=== PATIENT | male | born 1965 | race Caucasian/White ===

== ENCOUNTER 2018-06-18 09:18 | Day surgery (SDC) | payer MEDICARE ==
[2018-06-18] MEDS ORDERED: Fentanyl 100 MCG/2 ML VIAL ONE ×2 (09:57→10:27)
[2018-06-18] MEDS ORDERED: Midazolam HCl 2 mg/2 ml Vial ONE (10:27)
[2018-06-18] MEDS ORDERED: Iopamidol-M 300 61% 15 ML VIAL ONE (11:50)
--- NOTE | 2018-06-18 13:38 | RAD ---
CERVICAL AND THORACIC AND LUMBAR SPINE MYELOGRAM: HISTORY: Radiculopathy. COMPARISON: None. EXOPSURE: 1.4 minutes. 1685.0 mGy*^m2. FINDINGS: Initial loan specialist lumbar spine radiograph demonstrates 5 lumbar-type vertebral bodies. Vertebral body he ight is maintained. No malalignment. No spondylolisthesis. Initial 2 views of thoracic spine demon strate preservation of disk space height. No fracture or malalignment. Initial 2 views of the cervical spine demonstrate an anterior fusion plate with transvertebral body s crew at C3 and C4, as well as C5 and C6. No perihardware lucency. There is associated disk prosthes is. Moderate degenerative disk disease at C4-C5. Successful lumbar puncture for intrathecal contrast administration. A total of 9 cc of Isovue-M 300 contrast was administered intrathecally. The patient tolerated the procedure well. No immediate or postprocedure complications. TECHNIQUE: Consent was obtained to perform a lumbar puncture for cervical, thoracic, and lumbar myelogram. The patient's back was evaluated. The L2-L3 level was deemed appropriately. The skin was prepped and dr aped in sterile fashion. 1% Lidocaine, buffered with sodium bicarbonate, was used for local anesthes ia. Under fluoroscopic guidance, a 22-gauge spinal needle was advanced into the CSF space. The inne r stylette was removed. Via a short tubing catheter, a total of 9 cc of Isovue-M 300 contrast was ad ministered intrathecally. The patient tolerated the procedure well. No immediate or postprocedure c omplications. IMPRESSION: Successful cervical, thoracic, and lumbar spine myelogram. POS: [facility]
--- NOTE | 2018-06-18 13:45 | CT ---
CT THORACIC SPINE WITH CONTRAST: CT THORACIC SPINE MYELOGRAM: INDICATIONS: Back pain. FINDINGS: The thoracic spine vertebral body heights are maintained. There is no acute malalignment. Multileve l mild endplate degenerative change with marginal osteophyte formation is present. There is no high grade central canal stenosis or cord compromise throughout the thoracic spine. No high grade osseous compromise of the neural foramina. There is incompletely evaluated pleural-based and parenchymal density of the bilateral hemithoraces. Incidental note of punctate right nephrolithiasis. There is vascular calcification. IMPRESSION: Mild multilevel endplate degenerative change throughout the thoracic spine without evidence of high g rade central canal or neural foraminal stenosis. POS: [facility]
--- NOTE | 2018-06-18 13:53 | CT ---
POSTMYELOGRAM CERVICAL SPINE CT: COMPARISON: 07/05/2015. HISTORY: Radiculopathy. Status post cervical fusion. TECHNIQUE: Post-myelogram cervical spine CT is performed in the axial plane. Reformatted images are submitted f or interpretation. FINDINGS: The lateral masses of C1 and C2 as well as the facets have appropriate articulation. Cervical spine vertebral body height is maintained. No fracture. Stable fusion change at C3, C4, C5, an dC6. Mode rate degenerative disk disease at C4-C5 unchanged. Visualized soft tissue neck structures, upper mediastinum, and lung apices are unremarkable. The onl y exception is that there appears to be a focal area of atelectasis or scarring in the medial right l patel apex. Evaluation is limited on this examination. C2-C3: No disk-osteophyte complex. No significant central canal stenosis. Foramen are patent. C3-C4: There is a broad-based osteophyte ridge with a central component that abuts the thecal sac. Ventral subarachnoid space is still maintained. Mild central canal stenosis. Neural foramina are pa tent bilaterally. C4-C5: There is a broad-based disk-osteophyte complex which deforms the thecal sac. Ventral subarac hnoid space is effaced. There is moderate to severe central canal stenosis. The degree of central c anal stenosis has progressed since the previous examination. Degenerative changes in bilateral uncov ertebral joints results in mild bilateral foraminal narrowing. C5-C6: There is a central osteophyte ridge that buts the thecal sac. Mild central canal stenosis. Neural foramen are patent. C6-7: There is a broad-based disk-osteophyte complex that abuts the thecal sac. There appears to be mild to moderate central canal stenosis. Mild bilateral foraminal narrowing. C7-T1: No significant central canal stenosis or foraminal narrowing. IMPRESSION: 1. Worsening degenerative disk disease at C4-C5. There is moderate to severe central canal stenosis .. 2. Stable central canal stenosis at C6-C7. POS: [facility]
--- NOTE | 2018-06-18 14:03 | CT ---
POST MYELOGRAM LUMBAR SPINE CT: HISTORY: Lumbar radiculopathy. Pain. COMPARISON: None. TECHNIQUE: Post myelogram lumbar spine CT is performed in the axial plane. Reformatted images are submitted for interpretation. FINDINGS: Five lumbar-type vertebral bodies. Lumbar spine vertebral body height is maintained. There is no fr acture. No spondylolisthesis or spondolysis. The visualized retroperitoneal structures are unremarkable. Symmetric attenuation of the psoas muscl es. Alimentary canal is unremarkable. Conus medullaris terminates at the inferior aspect of L1. T12-L1: Disk space height is preserved. No significant central canal stenosis. Foramen are patent. L1-L2: Disk space height is preserved. No significant central canal stenosis or neural foraminal na rrowing. L2-L3: Disk space height is preserved. No significant central canal stenosis or neural foraminal na rrowing. L3-L4: Disk space height is preserved. No significant central canal stenosis. The right neural for amen is patent. There is moderate narrowing of the left neural foramen secondary to disk material an d facet hypertrophy. L4-L5: Disk space height is preserved. No significant central canal stenosis. Right neural foramen is patent. Mild left foraminal narrowing. L5-S1: No significant loss of disk space height. No significant central canal stenosis. Minimal ce ntral disk bulge abuts the thecal sac. Disk material abuts but does not obscure either traversing S1 nerve root. Neural foramina are patent bilaterally. IMPRESSION: No significant central canal stenosis or neural foraminal narrowing. POS: [facility]
== END 2018-06-18 13:15 | disposition home or self-care (01) ==
LOC: SDC/OP 09:18 → EDSTATUS 12:00 → SDC/OP 13:15
PROVIDERS: ATTEND Neurological Surgery
PROC: B01B1ZZ Fluoroscopy of Spinal Cord using Low Osmolar Contrast (ICD-10-PCS; principal; 2018-06-18)
DX: M50.121 Cervical disc disorder at C4-C5 level with radiculopathy (principal); M48.02 Spinal stenosis, cervical region; M47.814 Spondylosis without myelopathy or radiculopathy, thoracic region; G43.909 Migraine, unspecified, not intractable, without status migrainosus; I10 Essential (primary) hypertension; M10.9 Gout, unspecified; K21.9 Gastro-esophageal reflux disease without esophagitis; J44.9 Chronic obstructive pulmonary disease, unspecified; E78.5 Hyperlipidemia, unspecified; F41.8 Other specified anxiety disorders; Z79.899 Other long term (current) drug therapy; Z98.1 Arthrodesis status; Z88.1 Allergy status to other antibiotic agents; Z88.8 Allergy status to other drugs, medicaments and biological substances
CPT/HCPCS: 62305; 72126; 72129; 72132; J2250; J3010

== ENCOUNTER 2018-11-13 16:18 | Inpatient (IN) | payer MEDICARE ==
[2018-11-13] MEDS ORDERED: HYDROmorphone 0.5 MG/0.5 ML SYRINGE ONE (17:50)
[2018-11-13] MEDS ORDERED: Ondansetron PF 4 MG/2 ML Vial ONE (17:56)
[2018-11-13] MEDS ORDERED: Lorazepam 2 MG/ML VIAL ONE (18:02)
[2018-11-13] MEDS ORDERED: Fentanyl 100 MCG/2 ML VIAL ONE ×2 (18:39→21:02)
[2018-11-13] MEDS ORDERED: Lidocaine 5% Patch TD SCH (20:00)
[2018-11-13 22:11] VITALS: BMI 39.6
[2018-11-13] MEDS ORDERED: HYDROmorphone 10 mg/100 ml CADD IVPB PRN (22:21)
[2018-11-13] MEDS ORDERED: diphenhydrAMINE 50 MG/ML VIAL IM PRN (22:21)
[2018-11-13] MEDS ORDERED: Naloxone HCl 0.4 mg/ml Vial IV PRN (22:21)
[2018-11-13] MEDS ORDERED: diphenhydrAMINE 50 MG/ML VIAL IVP PRN (22:21)
[2018-11-13] MEDS ORDERED: Zolpidem Tartrate 5 MG TAB PO PRN (22:21)
[2018-11-13] MEDS ORDERED: Promethazine HCl 25 MG/ML VIAL IM PRN (22:21)
[2018-11-13] MEDS ORDERED: Communication Order-Pharmacy FS SCH (22:30)
[2018-11-13] MEDS ORDERED: hydrOXYzine Pamoate 25 mg Capsule PO PRN (22:41)
[2018-11-13] MEDS ORDERED: cloNIDine 0.1 MG TAB PO PRN (22:43)
[2018-11-13] MEDS ORDERED: Lorazepam 2 MG/ML VIAL SLOW IVP SCH (22:45)
[2018-11-14 00:39] LABS: #Basophils 0.1 thou/uL (0.0-0.2); #Eosinphils 0.1 thou/uL (0.0-0.7); #Lymphocytes 1.7 thou/uL (1.20-3.40); #Monocytes 0.8 thou/uL (0.11-0.59); #Neutrophils 3.5 thou/uL (1.40-6.50); %Basophils 1.5 % (0.0-1.0); %Eosinophils 1.9 % (0.0-10.0); %Lymphocytes 26.9 % (21.0-51.0); %Monocytes 13.2 % (0.0-10.0); %Neutrophils 56.6 % (42.0-75.0); Hemoglobin 15.1 g/dL (14.0-18.0); Mean Corpuscular HGB CONC 34.1 g/dL (32.0-36.0); Mean Corpuscular Hemoglobin 31.8 pg (27.0-31.0); Mean Corpuscular Volume 93.2 fL (78.0-98.0); Mean Platelet Volume 7.5 fL (7.4-10.4); Platelet Count 287 thou/uL (130-400); RBC Distribution Width 11.7 % (11.5-14.5); Red Blood Cell (RBC) Count 4.74 mill/uL (4.70-6.10); White Blood Cell (WBC) Count 6.3 thou/uL (4.8-10.8)
[2018-11-14 01:02] LABS: ALT (SGPT) 39 U/L (8-55); AST (SGOT) 26 U/L (5-34); Albumin 4.2 g/dL (3.5-5.0); Alkaline Phosphatase 53 U/L (40-150); Anion Gap 13 mmol/L (10-20); BUN (Urea Nitrogen) 10 mg/dL (8.4-25.7); Bilirubin, Total 0.4 mg/dL (0.2-1.2); Calc. Creatinine Clearance 152 mL/min (70-130); Calcium 9.5 mg/dL (7.8-10.44); Carbon Dioxide 23 mmol/L (22-29); Chloride 104 mmol/L (98-107); Estimated GFR-MDRD 85; Globulin 2.5 g/dL (2.4-3.5); Glucose 88 mg/dL (70-105); Protein, Total 6.7 g/dL (6.0-8.3); Sodium 136 mmol/L (136-145)
[2018-11-14] MEDS: Colchicine 0.6 MG TAB PO PRN ×2 (02:23→14:35)
[2018-11-14] MEDS: Gabapentin 300 MG CAP PO PRN ×2 (02:23→14:35)
[2018-11-14] MEDS: diphenhydrAMINE 25 MG CAP PO PRN ×2 (02:26→15:27)
--- NOTE | 2018-11-14 06:06 | HP ---
PRIMARY CARE PHYSICIAN: Dr. Beckford. CHIEF COMPLAINT: Intractable neck and lower back pain. HISTORY OF PRESENT ILLNESS: Mr. Cagle is a 53-year-old male with past medical history of prior back injury, severe cervical spinal stenosis at C4-C5, hypertension, hyperlipidemia, who had presented to [facility] after he was having worsening neck and lower back pain. The patient states that he sees Dr. Delcid for his chronic neck and back pain. He states that Dr. Delcid had also operated on his neck in the past. He states that he had a surgery scheduled for next week, Sunday, however, Dr. Delcid had to cancel that surgery and plan to reschedule that surgery for later date. He states that he had taken 50 mg of his home morphine along with one of his oxycodone earlier today, which he takes both of these daily. He states that the pain that he was having did not improve. He also reports headache, however, denies any blurred vision or any dizziness. He had denied any chest pain, palpitations, shortness of breath, abdominal pain, nausea, or vomiting. He states that he has numbness and tingling down his right arm and right leg. However, this has been chronic. He also complains of some mild bladder incontinence that has been on and off over the last [address] Delcid is aware of these and that these are chronic issues that are unchanged. In the emergency department, he was given IV fentanyl 100 mcg transdermal Lidoderm patch with 2nd IV fentanyl 100 mcg IV push, IV Ativan 1 mg, and IV Dilaudid 1 mg, however, his symptoms did not improve. It was at that time that it was determined that the patient be admitted for further management of his pain. Dr. Delcid was called by the ER staff, however, Dr. Delcid determined that this is not an emergent surgical need at this time and that the patient would need further pain control. Anesthesia services were consulted and will start the patient on HI LO DRIVER pump. REVIEW OF SYSTEMS: All other systems were reviewed and found to be negative unless mentioned in the HPI. PAST MEDICAL HISTORY: Significant for prior back injury, cervical spinal stenosis, hypertension, and hyperlipidemia. PAST SURGICAL HISTORY: Left testicular mass removal, right shoulder surgery, prior neck surgery, right knee surgery, right hip replacement. PSYCHIATRIC HISTORY: None. SOCIAL HISTORY: The patient reports drinking socially roughly 1-2 times a month. He had denied any tobacco or illicit drug use. KNOWN ALLERGIES: Cephalexin and lisinopril. CURRENT HOME MEDICATIONS: 1. Coreg 25 mg p.o. b.i.d. 2. Amlodipine 5 mg p.o. b.i.d. 3. Allopurinol 300 mg once daily. 4. Cymbalta 20 mg p.o. t.i.d. 5. Clonazepam 1 mg p.o. at bedtime. 6. Fenofibrate 50 mg p.o. once daily. 7. BuSpar 15 mg three times daily. 8. MS Contin 15 mg once daily. 9. Flexeril 10 mg p.o. b.i.d. 10. Zanaflex 4 mg p.o. b.i.d. 11. Colace 200 mg p.o. b.i.d. 12. Cialis 5 mg once daily. 13. Clonidine 0.1 mg as needed for elevated blood pressures. 14. Omeprazole 40 mg p.o. daily. 15. Vistaril 50 mg p.o. as needed for itching. PHYSICAL EXAMINATION: VITAL SIGNS: BP 142/81, pulse 68, respirations 20, temperature 98.3 degrees Fahrenheit, O2 saturation 95% on room air. GENERAL: The patient is awake, alert, and oriented. He is currently lying in bed, however, in moderate acute distress due to pain. HEENT: Atraumatic, normocephalic. Pupils are round and reactive to light. Extraocular muscles intact. Moist mucous membranes noted. NECK: Soft, supple. Trachea midline. Pain to palpation on posterior neck and pain with rotation. CARDIOVASCULAR: Positive S1 and S2. Regular rate and rhythm. No murmur auscultated. RESPIRATORY: Clear to auscultation bilaterally. No wheezes, rales, or rhonchi. ABDOMEN: Soft, nontender. Bowel sounds present. MUSCULOSKELETAL: Strength 5+ on the left, 4+ strength on the right upper extremity. Moves all extremities equal. No edema noted. NEUROLOGIC: Cranial nerves 2 through 12 grossly intact. As above, strength 4+ on the right; however, 5+ on the left. SKIN: Warm, dry, and intact. No rashes or ulceration noted. PSYCHIATRIC: The patient appears anxious and tearful at times due to pain. LABORATORY DATA: No labs were drawn in the ED, however, CBC and CMP are pending. DIAGNOSTIC IMAGING: None. ASSESSMENT AND PLAN: 1. Intractable neck and lumbar spine pain. The patient with a history of severe spinal stenosis at the levels of C4 and C5. He sees Dr. Delcid for who will have his surgery rescheduled. He was scheduled for Sunday, however, this was canceled due to personal reasons. Anesthesia services have been consulted and we will start the patient on HI LO DRIVER pump with Dilaudid for further pain control. His home pain regimen will be held while he is on HI LO DRIVER. 2. History of hypertension. Continue on the patient's home regimen. 3. Hyperlipidemia. Continue on the patient's home regimen. 4. History of sleep apnea. CPAP machine will be ordered for nighttime and be set at his home setting of 9. 5. Deep venous thrombosis and gastrointestinal prophylaxis. 6. Code status. Full code. DISPOSITION: Pending the patient's progress overnight with his HI LO DRIVER pump, day team will then further reassess the patient's pain and further adjustments to his home medications as needed. Job ID: [id number]
[2018-11-14] MEDS ORDERED: Lidocaine Patch Removal 1 EACH TOP SCH (08:00)
[2018-11-14] MEDS: Mometasone/Formoterol 120 PUFF INHALER INH SCH ×2 (08:09→18:56)
[2018-11-14] MEDS ORDERED: Carvedilol 6.25 MG TAB PO SCH (09:00)
[2018-11-14] MEDS: Polyethylene Glycol 3350 17 GM Packet PO SCH ×2 (09:02→20:39)
[2018-11-14] MEDS: Docusate 100 MG CAP PO SCH ×2 (09:03→20:39)
[2018-11-14] MEDS: Allopurinol 300 MG TAB PO SCH (09:14)
[2018-11-14] MEDS: Amlodipine 5 MG TAB PO SCH (09:15)
[2018-11-14] MEDS: Carvedilol 25 MG TAB PO SCH ×2 (09:15→20:38)
[2018-11-14] MEDS: Ondansetron PF 4 MG/2 ML Vial IVP PRN ×2 (09:19→14:20)
[2018-11-14] MEDS: Ezetimibe 10 MG TAB PO SCH (09:29)
[2018-11-14] MEDS: Lubiprostone 24 MCG CAP PO SCH (09:30)
[2018-11-14] MEDS: Gemfibrozil 600 MG TAB PO SCH (09:30)
[2018-11-14] MEDS ORDERED: cloNIDine 0.1 MG TAB PO PRN (11:46)
[2018-11-14] MEDS ORDERED: hydrOXYzine Pamoate 25 mg Capsule PO PRN (12:00)
--- NOTE | 2018-11-14 12:13 | PDOC.PN ---
- Subjective Encounter Start Date: 11/14/18 Encounter Start Time: 12:12 Subjective: Patient emotional and frustrated due to severe neck pain. States previously -: he had limited ROM but able to turn to the right. Now unable to due to -: "severe ripping" pain. States his numbness and weakness has worsened in the right arm. He had painful numbness in his right hand. States he has to write and wipe with his left hand. Has also noted more frequent urinary incontinence but denies any issues with dysuria. States he is unaware he has to empty his bladder until he has already done so. Reports no issues with control of his bowels. Denies any saddle paresthesia/anasthesia. Does state he is very constipated and manages with Miralax and stool softeners. Denies any blood in the stool. Has noted difficulty eating. Describes a tight sensation on the right side of his neck making it difficult to swallow at times. Denies any regurgitation of food, cough or regurgitation of food. He does report vomiting when his pain is uncontrolled. He has pain on the right side of his face as well as numbness. No pain in his eye and no vision or speech changes. Reports tightness in his chest and "PVCs" at home but has not been on a monitor. States his chest feels like it is fluttering and he comes lightheaded. No syncope. - Objective Vital Signs & Weight: Vital Signs (12 hours) Temp Pulse Resp BP Pulse Ox 11/14/18 11:48 98.4 F 70 20 133/70 99 11/14/18 09:15 59 L 11/14/18 07:38 98.6 F 66 16 160/78 H 97 11/14/18 05:50 98 11/14/18 05:14 97 11/14/18 04:29 97 11/14/18 03:00 60 16 154/86 H 97 11/14/18 02:00 98.1 F 68 16 132/63 98 11/14/18 01:30 84 20 142/71 H 99 11/14/18 01:00 73 16 135/73 100 11/14/18 00:45 67 16 139/75 98 11/14/18 00:30 71 16 141/84 H 98 11/14/18 00:15 66 20 142/83 H 94 L Weight Weight 261 lb 4.8 oz I&O: 11/13/18 11/14/18 11/15/18 06:59 06:59 06:59 Intake Total 185 2 Output Total 450 Balance -265 2 Result Diagrams: 11/14/18 00:20 11/14/18 00:20 Phys Exam - Physical Examination Constitutional: NAD HEENT: PERRLA, oral pharynx no lesions Neck: supple Limited ROM Respiratory: no wheezing, no rales, no rhonchi, clear to auscultation bilateral Cardiovascular: RRR Gastrointestinal: soft, non-tender, no distention, positive bowel sounds Musculoskeletal: no edema, pulses present Neurological: moves all 4 limbs numbness in right upper extremitiy Psychiatric: normal affect, A&O x 3 Skin: no rash, normal turgor Dx/Plan (1) Cervical spinal stenosis Code(s): M48.02 - SPINAL STENOSIS, CERVICAL REGION Status: Acute (2) Uncontrolled pain Code(s): R52 - PAIN, UNSPECIFIED Status: Acute (3) Constipation Code(s): K59.00 - CONSTIPATION, UNSPECIFIED Status: Acute - Plan cont current plan of care On DRAMATIC AGENT dilaudid, recently adjusted by Anesthesiology. Advised neurosurgery -: as patientwith persistent pain. Have resumed home meds including Flexeril. -: Ativan prn for anxiety. Patients case discussed with Dr. Medina who agrees with plan as above.
[2018-11-14] MEDS: HYDROmorphone 10 mg/100 ml CADD IVPB PRN ×2 (12:29→20:52)
[2018-11-14] MEDS: Lorazepam 1 MG TAB PO PRN (15:27)
[2018-11-14] MEDS: Cyclobenzaprine 10 MG TAB PO SCH (20:38)
[2018-11-14] MEDS: clonazePAM 1 MG TAB PO SCH (20:38)
[2018-11-14] MEDS: tiZANidine HCl 4 MG TAB PO SCH (20:40)
--- NOTE | 2018-11-14 22:52 | CON ---
DATE OF CONSULTATION: HISTORY OF PRESENT ILLNESS: Mr. Cagle is known to our office well. He is a 53-year-old male who reports to the ED last night for intractable pain. The patient has a long history of cervical and lumbar pain, which he has been treated for with multiple cervical and lumbar surgeries. Dr. Delcid has performed his last cervical surgery. He was seen last in our office in June of 2018. At that time, discussion about surgery was offered. There is some cervical stenosis with cord compression. Dr. Delcid has offered to repair this with caveat that this surgery would be primarily to prevent any further myelopathic symptoms. This would not be a way to reduce the patient's pain in fact surgery with most likely increase his current pain level pretty significantly. The patient is complaining of severe headache, neck pain along with radicular pain, numbness, and tingling of bilateral hands and lower extremities. He states the bottom of feet have been numb and tingly. The patient states that he fell a week ago going up the stairs of his trailer. He states that the pain has been significantly worse since then. The patient states that he has a 10/10, however, today when I see him in his hospital room, he does state that things are better than yesterday, which is not where he would like them. The patient states that his head is pounding, it feels like his head is going to explode on the right side. He also feels a "ripping sensation " when he rotates his neck, primarily on the right. The patient states that he has numbness and tingling on the right side of his face associated with this headache. This is new. The patient is complaining of pain running down behind his shoulder blade down the arm, numbness primarily in the middle 3 fingers bilaterally, worse on the right than the left. The patient states that he has been dropping items. The numbness and tingling has been there in the past along with some imbalance issues, low back pain. REVIEW OF SYSTEMS: A 10-point review of systems has been completed and is negative other than stated in the above HPI. ALLERGIES: CEPHALEXIN MONOHYDRATE, KEFLEX, LISINOPRIL. PAST MEDICAL HISTORY: Neck injury, hypertension, high cholesterol. PAST SURGICAL HISTORY: Left testicular mass removed, right shoulder surgery, neck surgery x2, lumbar surgery, knee surgery, hip replacement. SOCIAL HISTORY: The patient drinks socially. Denies drug use. The patient has no smoking history. The patient is currently taking morphine for pain control. CURRENT MEDICATIONS: 1. Coreg. 2. Norvasc. 3. Allopurinol. 4. Cymbalta. 5. Clonazepam. 6. Fenofibrate. 7. Buspirone. 8. MS Contin. 9. Flexeril. 10. Zanaflex. 11. Colace. 12. Cialis. 13. Clonidine. 14. Omeprazole. 15. Vistaril. PHYSICAL EXAMINATION: VITAL SIGNS: Temperature 98.4, heart rate 70, respirations 20, O2 saturation 99 % on room air, blood pressure 133/70. CONSTITUTIONAL: The patient is afebrile, normotensive, appears nontoxic. He is alert and oriented x3, but appears to be in pain. HEENT: Head is normocephalic and atraumatic. There is a change in sensation to light touch on the right face, worse by the eye. Pupils are equal, round, and reactive to light. Extraocular movements are intact. Hearing is intact. Moist mucous membranes. NECK: Range of motion is decreased due to pain. Tenderness to palpate the cervical spine and upper thoracic. RESPIRATORY: Normal work of breathing on room air, no distress. Symmetric chest rise. BACK: There is tenderness to the lumbar spine. Decreased range of motion due to pain. EXTREMITIES: Upper extremities, 5/5 strength bilaterally, wrist extension, finger extension, finger intrinsics, 4/5 right deltoid, biceps, triceps, however the patient's cooperation was limited. Sensation decreased bilaterally, middle finger, worse on the right than the left. Spurling's negative. Reflexes symmetric. Lower extremities, 5/5 strength, hip flexion, knee flexion, extension, dorsiflexion, plantar flexion. No change in sensation to light touch. Single leg raise negative. NEUROLOGIC: The patient is alert and oriented x3. Speech is spontaneous and fluent. Cranial nerves 2 through 12 are intact. Sensory changes on the right side of face. No facial asymmetry. Decreased sensation primarily in the middle 3 fingers bilaterally of both hands, worse on the right than the left. Strength as above. ASSESSMENT AND PLAN: Mr. Cagle is a 53-year-old male who is known to our office. We have an appointment scheduled for him to discuss surgery next week. The patient needs to discuss the options and plan moving forward. The last time this was discussed was in June of 2018. The patient states that he was going to contact our office when he is ready to schedule a surgery and followup appointment is next week. Given that this headache and sensation change on the right face is new, I have ordered an MRI to assess. Given the patient's exam is comparable to the patient's previous exam in the office, we will not operated on an emergent bases. We will follow for spinal disease in out office. Pt. should keep his previous scheduled appointment. Job ID: [id number]
[2018-11-15 07:12] LABS: Anion Gap 13 mmol/L (10-20); BUN (Urea Nitrogen) 11 mg/dL (8.4-25.7); Calc. Creatinine Clearance 144 mL/min (70-130); Calcium 9.3 mg/dL (7.8-10.44); Carbon Dioxide 23 mmol/L (22-29); Chloride 103 mmol/L (98-107); Estimated GFR-MDRD 80; Glucose 92 mg/dL (70-105); Potassium 4.3 mmol/L (3.5-5.1); Sodium 135 mmol/L (136-145)
[2018-11-15 07:15] LABS: Hemoglobin 14.8 g/dL (14.0-18.0); Mean Corpuscular HGB CONC 33.5 g/dL (32.0-36.0); Mean Corpuscular Hemoglobin 31.4 pg (27.0-31.0); Mean Corpuscular Volume 93.8 fL (78.0-98.0); Mean Platelet Volume 8.3 fL (7.4-10.4); Platelet Count 243 thou/uL (130-400); RBC Distribution Width 11.9 % (11.5-14.5); Red Blood Cell (RBC) Count 4.73 mill/uL (4.70-6.10); White Blood Cell (WBC) Count 5.6 thou/uL (4.8-10.8)
[2018-11-15 08:10] LABS: Eosinophils 8 % (0-10); Lymphocytes 17 % (21-51); MDiff Complete? YES; Monocytes 14 % (0-10); Neutrophil 48 % (42-75); Platelet Morphology Comment Appears Adequate; RBC Morphology Normal; Reactive Lymphocytes 12 % (0-10)
[2018-11-15] MEDS: Amlodipine 5 MG TAB PO SCH (09:39)
[2018-11-15] MEDS: Ezetimibe 10 MG TAB PO SCH (09:39)
[2018-11-15] MEDS: Lorazepam 1 MG TAB PO PRN (09:39)
[2018-11-15] MEDS: Docusate 100 MG CAP PO SCH ×2 (09:39→21:24)
[2018-11-15] MEDS: tiZANidine HCl 4 MG TAB PO SCH ×2 (09:39→21:24)
[2018-11-15] MEDS: Polyethylene Glycol 3350 17 GM Packet PO SCH ×2 (09:40→21:15)
[2018-11-15] MEDS: Allopurinol 300 MG TAB PO SCH (09:40)
[2018-11-15] MEDS: Fenofibrate Nanocrystallized 145 MG TAB PO SCH (09:40)
[2018-11-15] MEDS: Gemfibrozil 600 MG TAB PO SCH (09:40)
[2018-11-15] MEDS: Cyclobenzaprine 10 MG TAB PO SCH ×2 (09:40→21:24)
[2018-11-15] MEDS: Carvedilol 25 MG TAB PO SCH ×2 (09:40→21:24)
[2018-11-15] MEDS: Lubiprostone 24 MCG CAP PO SCH (09:40)
[2018-11-15] MEDS: Mometasone/Formoterol 120 PUFF INHALER INH SCH ×2 (10:25→18:55)
--- NOTE | 2018-11-15 12:15 | MRI ---
MRI Brain WO Con: 11/15/2018 12:00 AM CLINICAL HISTORY: Headache, History of recent fall. COMPARISON: None. FINDINGS: Extra axial spaces: Normal in size and morphology for the patient's age. Hemorrhage: None. Ventricular system: Normal in size and morphology for the patient's age. Basal cisterns: Normal. Cerebral parenchyma: Normal. Midline shift: None. Cerebellum: Normal. Brainstem: Normal. Paranasal sinuses:Scattered mucosal thickening. IMPRESSION:No acute intracranial abnormality.
[2018-11-15] MEDS ORDERED: Morphine 2 MG/ML SYRINGE SLOW IVP PRN (16:14)
--- NOTE | 2018-11-15 17:06 | PRG ---
DATE OF SERVICE: 11/15/2018 CHIEF COMPLAINT: Neck pain. HISTORY OF PRESENT ILLNESS: This is a 53-year-old male with history of chronic C4-C5 spinal stenosis, hypertension, hyperlipidemia, obstructive sleep apnea, and anxiety, who came to the hospital for worsening neck pain and concerns about his balance. He was admitted for intractable neck and lumbar spine pain. SUBJECTIVE: The patient seen and evaluated at the bedside. His is present. He continues to complain of neck and occipital pain, but much better with Dilaudid HOUSING PROJECT MANAGER pump. Per nurse, no other acute events overnight. REVIEW OF SYSTEMS: All systems are reviewed and negative except for the one as mentioned above. PHYSICAL EXAMINATION: VITAL SIGNS: Blood pressure 135/74, pulse 60, respirations 18, oxygen saturation 98% on room air, and temperature 97.8 Fahrenheit. GENERAL: He is in mild distress due to pain. Awake, alert, and oriented x3. HEAD AND NECK: Pupils are reactive to light. Extraocular muscles are intact. Mucous membranes are moist. Neck is stiff. No bruits. CARDIOVASCULAR: Rhythm and rate are regular. No audible murmurs, rubs, or gallops. PULMONARY: Clear to auscultation bilaterally. No wheezes, rhonchi, or crackles. ABDOMEN: Soft, nontender, and nondistended. Positive bowel sounds. EXTREMITIES: No palpable edema. Pulses are symmetric. Range of motion is intact. SKIN: Normal moist and color. NEUROLOGIC: Cranial nerves 2 through 12 appear grossly intact. Deep tendon reflexes are brisk on the upper and lower extremities. Muscle strength is normal. LABORATORY DATA: Laboratory abnormalities: None. MEDICATIONS: Current medications are reviewed. IMAGING STUDIES: Report are reviewed. ASSESSMENT AND PLAN: 1. Intractable cervical pain: Secondary to chronic spinal stenosis. Continue muscle relaxant, Cymbalta. I will stop the Dilaudid HOUSING PROJECT MANAGER pump and explained to him that he would not be going home with IV narcotics for pain control. He was previously taking MS Contin and OxyContin. I would give him a trial of Dilaudid p.o. with morphine breakthrough pain IV. Once pain is better controlled with oral medications, the patient can be safely discharged. 2. Essential hypertension: Currently at goal. 3. Hyperlipidemia: No issues. 4. Obstructive sleep apnea: No issues. 5. Obesity with BMI 39: Lifestyle modifications changes recommended. 6. Code status: Full code. 7. Core measure: SCDs. 8. Disposition: Medical/Surgical unit. 9. Prognosis: Guarded. 10. Clinical status: Guarded. 11. Expected discharge: In the next 48 hours. TOTAL TIME SPENT: 35 minutes. Job ID: [id number]
[2018-11-15] MEDS: HYDROmorphone 2 MG TAB PO PRN (17:53)
[2018-11-15] MEDS ORDERED: busPIRone HCl 5 MG TAB PO SCH (21:00)
[2018-11-15] MEDS: clonazePAM 1 MG TAB PO SCH (21:24)
[2018-11-16 06:49] LABS: #Basophils 0.1 thou/uL (0.0-0.2); #Eosinphils 0.2 thou/uL (0.0-0.7); #Lymphocytes 1.2 thou/uL (1.20-3.40); #Monocytes 0.6 thou/uL (0.11-0.59); #Neutrophils 4.6 thou/uL (1.40-6.50); %Basophils 0.9 % (0.0-1.0); %Eosinophils 3.3 % (0.0-10.0); %Lymphocytes 18.3 % (21.0-51.0); %Monocytes 8.9 % (0.0-10.0); %Neutrophils 68.7 % (42.0-75.0); Hemoglobin 15.7 g/dL (14.0-18.0); Mean Corpuscular HGB CONC 33.3 g/dL (32.0-36.0); Mean Corpuscular Hemoglobin 30.9 pg (27.0-31.0); Mean Corpuscular Volume 92.7 fL (78.0-98.0); Mean Platelet Volume 8.9 fL (7.4-10.4); Platelet Count 186 thou/uL (130-400); RBC Distribution Width 11.7 % (11.5-14.5); Red Blood Cell (RBC) Count 5.07 mill/uL (4.70-6.10); White Blood Cell (WBC) Count 6.7 thou/uL (4.8-10.8)
[2018-11-16] MEDS: Mometasone/Formoterol 120 PUFF INHALER INH SCH (07:36)
[2018-11-16] MEDS ORDERED: Fish Oil 1,000 MG CAP PO SCH (09:00)
[2018-11-16] MEDS: Ezetimibe 10 MG TAB PO SCH (09:43)
[2018-11-16] MEDS: tiZANidine HCl 4 MG TAB PO SCH (09:43)
[2018-11-16] MEDS: Fenofibrate Nanocrystallized 145 MG TAB PO SCH (09:44)
[2018-11-16] MEDS: Carvedilol 25 MG TAB PO SCH (09:44)
[2018-11-16] MEDS: Lubiprostone 24 MCG CAP PO SCH (09:44)
[2018-11-16] MEDS: Docusate 100 MG CAP PO SCH (09:44)
[2018-11-16] MEDS: Amlodipine 5 MG TAB PO SCH (09:44)
[2018-11-16] MEDS: Polyethylene Glycol 3350 17 GM Packet PO SCH (09:46)
[2018-11-16] MEDS: Gemfibrozil 600 MG TAB PO SCH (09:46)
[2018-11-16] MEDS: Allopurinol 300 MG TAB PO SCH (09:46)
[2018-11-16] MEDS: Cyclobenzaprine 10 MG TAB PO SCH (09:46)
[2018-11-16] MEDS: HYDROmorphone 2 MG TAB PO PRN (09:52)
[2018-11-16] MEDS: Ondansetron PF 4 MG/2 ML Vial IVP PRN (14:00)
[2018-11-16 15:06] VITALS: BP 143/83; TEMP 98.1
--- NOTE | 2018-11-17 02:01 | DIS ---
DATE OF ADMISSION: 11/14/2018 DATE OF DISCHARGE: 11/16/2018 ADMITTED PHYSICIAN: DEMETRI Das. DISCHARGING PHYSICIAN: Dr. Jameson. PRIMARY CARE PHYSICIAN: Tiffany Beckford MD. CONSULTS: Spine surgeon. PROCEDURES: None. SPECIAL IMAGING: MRI of the brain. ADMITTING DIAGNOSES: 1. Intractable neck and lumbar spine pain. 2. History of hypertension. 3. Hyperlipidemia. 4. History of sleep apnea. DISCHARGE DIAGNOSES: 1. Intractable cervical pain (resolved). 2. Essential hypertension. 3. Hyperlipidemia. 4. Obstructive sleep apnea. 5. Obesity with BMI of 39. HOSPITAL COURSE: This is a 53-year-old male with history of chronic C4 and C5 spinal stenosis, hypertension, hyperlipidemia, obstructive sleep apnea, anxiety, who came to the emergency department for worsening neck pain with concerns of losing his balance and breaking his neck. He was admitted for inpatient pain control. He was started on a [employer] pump of Dilaudid. His spine surgeon was consulted but recommended no emergent surgical intervention was needed and he will be following with him as an outpatient. The patient's home narcotics were discontinued. S[employer] pump was discontinue and the patient initiated on oral Dilaudid at 4 mg three times a day. I had an extensive conversation with him regarding opiate overdose and narcotic addiction. He has a contract with his primary care physician regarding pain management. He was recommended to seek pain management followup. He is better controlled with Dilaudid 4 mg t.i.d. p.r.n. This prescription will be placed in the chart and the patient was encouraged to turn in the rest of the MS Contin and oxycodone that he has at home. He is at high risk for complications. He will be following with spine surgeon. He is stable for discharge. PHYSICAL EXAMINATION: VITAL SIGNS: Blood pressure 147/80, pulse 51, respirations 18, oxygen saturation 94% on room air, temperature 97.3 Fahrenheit. GENERAL: He appears in less distress. He is awake, alert, and oriented x3. HEAD AND NECK: Pupils are equal and reactive to light. Extraocular muscles are intact. Mucous membranes are moist. Neck is stiff. No bruits. CARDIOVASCULAR: Rhythm and rate are regular. No audible murmurs, rubs, or gallops. PULMONARY: Clear to auscultation bilaterally. No wheezes, rhonchi, or crackles. ABDOMEN: Soft, nontender, nondistended, positive bowel sounds. EXTREMITIES: No palpable edema. Pulses are symmetric. Range of motion is intact. SKIN: Normal moist and color. NEUROLOGIC: Cranial nerves 2 through 12 are grossly intact. Deep tendon reflexes are somewhat brisk. Muscle strength is normal. LABORATORY ABNORMALITIES: CBC and BMP reviewed with no abnormalities. IMAGING STUDY: Reports are reviewed. DISCHARGE DISPOSITION: Home with self care. DISCHARGE CONDITION: Fair. DISCHARGE DIET: Low-sodium diet as tolerated. DISCHARGE ACTIVITY: Increase activity as tolerated. DISCHARGE MEDICATIONS: See medical reconciliation for details. DISCHARGE FOLLOWUP: With primary spine surgeon within 1 week and primary care physician. The patient encouraged to continue a pain contract with his PCP. DISCHARGE INSTRUCTIONS: The patient was instructed to return to the emergency department if symptoms are worsened. Take his medications as directed and not to miss any appointments. TIME OF DISCHARGE AND PLANNIN minutes. Job ID: [id number]
== END 2018-11-16 15:07 | disposition home or self-care (01) | DRG 552 ==
LOC: ERS 16:18 → 2SW 22:05 → OBSVTOIN 11-14 11:42 → T4-B 11-14 14:15
PROVIDERS: ADMIT Emergency Medicine; ATTEND Emergency Medicine
DX: M48.02 Spinal stenosis, cervical region (principal); I10 Essential (primary) hypertension; E78.5 Hyperlipidemia, unspecified; K59.00 Constipation, unspecified; G47.33 Obstructive sleep apnea (adult) (pediatric); E66.9 Obesity, unspecified; Z68.39 Body mass index [BMI] 39.0-39.9, adult
CPT/HCPCS: 36415; 70551; 80048; 80053; 85025; 94660; 96374; 96375; 96376; J1170; J2060; J2270; J2405; J3010; Q0163

== ENCOUNTER 2018-11-21 08:27 | Outpatient (CLI) | payer MEDICARE ==
--- NOTE | 2018-11-21 09:07 | RAD ---
CERVICAL SPINE AP LATERAL STANDARD: HISTORY: M54.12, cervical radiculopathy. COMPARISON: CT cervical spine from 06/18/2018. FINDINGS: Satisfactory appearance of the ACDF hardware at C3-4 as well as C5-6 with diskectomy change and adequ ate ossification. There is moderate degenerative disk space height loss at C4-5 with uncinate proces s hypertrophy as well as circumferential disk-osteophyte complex. No significant listhesis with flex ion or extension. IMPRESSION: No significant listhesis with flexion or extension. POS: [facility]
== END 2018-11-21 08:28 | disposition home or self-care (01) ==
LOC: TBSIIMAG 08:27
PROVIDERS: ATTEND Neurological Surgery
DX: M54.12 Radiculopathy, cervical region (principal)
CPT/HCPCS: 72040

== ENCOUNTER 2018-12-11 06:25 | Outpatient (CLI) | payer MEDICARE ==
[2018-12-11 14:13] LABS: Hemoglobin 15.4 g/dL (14.0-18.0); Mean Corpuscular HGB CONC 33.8 g/dL (32.0-36.0); Mean Corpuscular Hemoglobin 31.9 pg (27.0-31.0); Mean Corpuscular Volume 94.4 fL (78.0-98.0); Platelet Count 284 thou/uL (130-400); RBC Distribution Width 11.8 % (11.5-14.5); Red Blood Cell (RBC) Count 4.81 mill/uL (4.70-6.10); White Blood Cell (WBC) Count 6.4 thou/uL (4.8-10.8)
[2018-12-11 14:17] LABS: INR-International Normal Ratio 0.9; PTT 21.7 SEC (22.9-36.1); Prothrombin Time 11.8 SEC (12.0-14.7)
[2018-12-11 14:38] LABS: Anion Gap 14 mmol/L (10-20); BUN (Urea Nitrogen) 14 mg/dL (8.4-25.7); Calc. Creatinine Clearance 0 mL/min (70-130); Calcium 9.6 mg/dL (7.8-10.44); Carbon Dioxide 24 mmol/L (22-29); Chloride 105 mmol/L (98-107); Estimated GFR-MDRD 84; Glucose 119 mg/dL (70-105); Potassium 4.2 mmol/L (3.5-5.1); Sodium 139 mmol/L (136-145)
== END 2018-12-11 06:26 | disposition home or self-care (01) ==
LOC: LABBT 06:25
PROVIDERS: ATTEND Neurological Surgery
DX: Z01.812 Encounter for preprocedural laboratory examination (principal); M50.00 Cervical disc disorder with myelopathy, unspecified cervical region; M48.02 Spinal stenosis, cervical region
CPT/HCPCS: 80048; 85027; 85610; 85730; 87081

== ENCOUNTER 2018-12-11 13:00 | Inpatient (IN) | payer MEDICARE ==
[2018-12-11 13:51] VITALS: BMI 39.2
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
[2018-12-13] MEDS ORDERED: Midazolam HCl 2 mg/2 ml Vial ONE ×2 (08:22→16:00)
[2018-12-13] MEDS ORDERED: Fentanyl 100 MCG/2 ML VIAL ONE ×4 (08:22→16:38)
[2018-12-13] MEDS ORDERED: Thrombin 5000 UNITS/5 ML VIAL ONE ×2 (09:41→13:28)
[2018-12-13] MEDS ORDERED: Sodium Chloride 0.9% 10 ML ONE (09:41)
[2018-12-13] MEDS ORDERED: Bupivacaine HCl 0.5%/Epinephrine 1:200,000/PF 30 ml Vial ONE (09:41)
[2018-12-13] MEDS ORDERED: Bacitracin Zinc Ointment 30 gm TUBE ONE (09:45)
[2018-12-13] MEDS ORDERED: Ketamine 50 MG/ML (10ML VIAL) ONE (10:27)
[2018-12-13] MEDS ORDERED: Fentanyl 250 MCG/5 ML VIAL ONE (10:37)
[2018-12-13] MEDS ORDERED: Glycopyrrolate 0.2 MG/ML 5 ML SYRINGE ONE (10:46)
[2018-12-13] MEDS ORDERED: ePHEDrine 50 MG/ML VIAL ONE (10:46)
[2018-12-13] MEDS ORDERED: PHENYLEPHRINE-NS 100 MCG/ML 10 ML SYRINGE ONE (10:46)
[2018-12-13] MEDS ORDERED: Rocuronium Bromide 10 MG/ML (10ML VIAL) ONE (10:46)
[2018-12-13] MEDS ORDERED: Ondansetron PF 4 MG/2 ML Vial ONE (10:46)
[2018-12-13] MEDS ORDERED: Dexamethasone 20 MG/5 ML VIAL ONE (10:46)
[2018-12-13] MEDS ORDERED: Lidocaine 1% PF 5 ML VIAL ONE (10:46)
[2018-12-13] MEDS ORDERED: PROPOFOL 200 MG/20 ML VIAL ONE (10:46)
[2018-12-13] MEDS ORDERED: Sodium Chloride 0.9% 20 ML ONE (13:35)
[2018-12-13] MEDS ORDERED: Albumin 5% 500 ML ONE (13:46)
[2018-12-13] MEDS ORDERED: SUGAMMADEX SODIUM 200 MG/2 ML VIAL ONE (14:57)
[2018-12-13] MEDS ORDERED: Mag-Al 1200 mg/1200 mg/30 ML UDCUP PO PRN (15:39)
[2018-12-13] MEDS ORDERED: HYDROcodone/Acetaminophen 10/325 mg Tablet PO PRN (15:39)
[2018-12-13] MEDS ORDERED: Morphine 2 MG/ML SYRINGE SLOW IVP PRN (15:39)
[2018-12-13] MEDS ORDERED: diphenhydrAMINE 50 MG/ML VIAL IVP PRN (15:39)
[2018-12-13] MEDS ORDERED: Milk Of Magnesia 30 ML UDCUP PO PRN (15:39)
[2018-12-13] MEDS ORDERED: Morphine 4 MG/ML VIAL SLOW IVP PRN (15:39)
[2018-12-13] MEDS ORDERED: Bisacodyl 10 MG SUPP PR PRN (15:39)
[2018-12-13] MEDS ORDERED: Tamsulosin HCl 0.4 MG CAP PO PRN (15:39)
[2018-12-13] MEDS ORDERED: Colchicine 0.6 MG TAB PO PRN (15:47)
[2018-12-13] MEDS ORDERED: Ondansetron ODT 8 MG TAB PO PRN (15:47)
[2018-12-13] MEDS ORDERED: hydrOXYzine Pamoate 25 mg Capsule PO PRN (15:47)
[2018-12-13] MEDS ORDERED: cloNIDine 0.1 MG TAB PO PRN (15:47)
[2018-12-13] MEDS ORDERED: Promethazine HCl 25 MG/ML VIAL ONE (15:49)
[2018-12-13] MEDS ORDERED: Morphine Sulfate 2 MG/ML SYRINGE SLOW IVP PRN (16:02)
[2018-12-13] MEDS ORDERED: Ketorolac Tromethamine 30 MG/ML VIAL IVP PRN (16:02)
[2018-12-13] MEDS ORDERED: Promethazine HCl 25 MG/ML VIAL SLOW IVP PRN (16:02)
[2018-12-13] MEDS ORDERED: HYDROmorphone 2 MG/ML VIAL SLOW IVP PRN (16:02)
[2018-12-13] MEDS ORDERED: Meperidine HCl/PF 25 MG/ML VIAL SLOW IVP PRN (16:02)
[2018-12-13] MEDS ORDERED: Ondansetron HCl/PF 4 MG/2 ML Vial IVP PRN (16:02)
[2018-12-13] MEDS ORDERED: HYDROmorphone 2 MG/ML VIAL ONE ×2 (17:14→18:18)
[2018-12-13] MEDS: diphenhydrAMINE 25 MG CAP PO PRN (20:29)
[2018-12-13] MEDS: Carvedilol 25 MG TAB PO SCH (20:29)
[2018-12-13] MEDS: tiZANidine HCl 4 MG TAB PO PRN (20:29)
[2018-12-13] MEDS: Cyclobenzaprine 10 MG TAB PO SCH (20:29)
[2018-12-13] MEDS: Promethazine 25 MG TAB PO PRN (20:29)
[2018-12-13] MEDS: Amlodipine 5 MG TAB PO SCH (20:30)
[2018-12-13] MEDS: buPROPion 75 MG TAB PO SCH (20:30)
[2018-12-13] MEDS: clonazePAM 1 MG TAB PO SCH (20:30)
[2018-12-13] MEDS: Morphine ER 30 MG TAB PO SCH (20:30)
[2018-12-13] MEDS: DULoxetine 60 MG CAP PO SCH (20:30)
[2018-12-13] MEDS: HYDROmorphone 2 MG TAB PO PRN (20:31)
[2018-12-13] MEDS: Docusate Sodium 100 MG/10 ML UDCUP PO SCH (20:32)
[2018-12-13] MEDS: Sodium Chloride 0.9% 1,000 ML IV SCH (20:48)
[2018-12-13] MEDS ORDERED: Cyclobenzaprine 10 MG TAB PO SCH (21:00)
[2018-12-13] MEDS ORDERED: Docusate 100 MG CAP PO SCH (21:00)
[2018-12-13] MEDS ORDERED: busPIRone HCl 5 MG TAB PO SCH (21:00)
[2018-12-13] MEDS ORDERED: Docusate Sodium 100 MG/10 ML UDCUP PO SCH (21:00)
--- NOTE | 2018-12-13 21:35 | OP ---
DATE OF PROCEDURE: 12/13/2018 ASSEMBLER BONDING: Alysia Howard PA-C. PREOPERATIVE INDICATION: Prevent neurological deterioration. PREOPERATIVE DIAGNOSES: Prior anterior cervical diskectomy and fusion x2, residual stenosis, adjacent segment stenosis, and adjacent segment foraminal disease with radiculopathy. POSTOPERATIVE DIAGNOSES: Prior anterior cervical diskectomy and fusion x2, residual stenosis, adjacent segment stenosis, and adjacent segment foraminal disease with radiculopathy. PROCEDURES PERFORMED: Decompressive laminectomy, medial facetectomy, foraminotomy, C3, C4, C5, C6, C7, posterolateral arthrodesis, C3-C7 with pedicle screws at C7 and lateral mass screws above. Local morselized autograft, morselized allograft. PREOPERATIVE MEDICATIONS: Vancomycin 1 g IV. DRAIN NUMBER: Zero. DRAIN TYPE: None. DESCRIPTION OF PROCEDURE: The patient was brought to the operating room. General endotracheal anesthesia was induced. A [employer] pin headholder was attached to the patient's head and the patient was rolled into the prone position with his chest and hips supported by gel-filled chest rolls. Head was immobilized with Aceves attachment from the operating table. Hair was removed from the back of the scalp and neck with electric clippers. We marked out a midline incision from C2 to T1. The back of the neck was sterilely prepped and draped. We opened our incision with a 10 blade knife and controlled bleeding with bipolar and monopolar cautery. We used monopolar cautery to dissect through the subcutaneous tissues to the ligamentum nuchae. We incised the ligament in the midline and arrived to the spinous processes. We reflected the paraspinal muscles off the spinous process and lamina of C3, C4, C5, C6, and C7. A self-retaining retractor was placed and a lateral fluoro radiograph confirmed the levels upon which we were operating. We then used a high-speed drill with a shalom bit to thin the sides of the lamina from C3 to C6. A 2 mm Kerrison rongeur was used to disconnect the lamina and then they were removed as a single unit with good decompression of the dura. We widened our laminectomy defect until we were lateral to the dura on both sides and we removed the superior 7 mm of the C7 lamina as well. We performed foraminotomies over the exiting nerve roots. We paid particular attention to the C7 nerve root on the right side. We performed a very wide foraminotomy, exposing the nerve root all the way out past the foramen and the superior portion of the pedicle at C7. This gave us good visualization of the medial portion and the superior portion of the C7 pedicle, so we chose to place pedicle screws at C7 during our instrumentation. We controlled bleeding with gentle bipolar cautery and waxed the bone edges and then turned our attention to instrumentation. Using bony anatomic landmarks, palpation of the medial and superior portions of the pedicles, and a lateral fluoro radiograph as our guide, we chose the entry points for C7 pedicle screws. We drilled out our entry point and then used a hand drill to drill our trajectory into the vertebral body. We tapped the trajectory with a 3.5-mm tap and then placed a 4.0 x 24 mm screws through the C7 pedicles into the C7 vertebral body. These were angled slightly downward, but the trajectory was acceptable. It was completely encased in bone. We then used a high-speed cutting bit and drilled out the entry points for lateral mass screws at C3, C4, and C5 bilaterally. We aimed our lateral mass screw trajectory superior and laterally and drilled this with a high-speed drill. We then placed 14 mm lateral mass screws. The C6 lateral mass screws could not be placed due to the pedicle screws at C7, for those pedicle screws were long and had excellent purchase. We irrigated once again with bacitracin irrigation. We brought the rods into the field and cut them to the appropriate length. They were bent to a shape that would engage each of the screw heads, caps were tightened down over the rods, and using a counter-torque mechanism, we ensured adequate tightness. We irrigated one last time with bacitracin irrigation. We infused local anesthetic in the paraspinal muscles. We then decorticated the lateral portion of each lateral mass from C3 to C7 and over the decorticated bone we left demineralized bone matrix and morselized autograft as our posterolateral fusion substrate. This autograft was obtained from our laminectomy bone which was cleaned of all soft tissue attachments, morcellized, and added into demineralized bone matrix as our fusion substrate. We then treated the wound with vancomycin powder. We closed in anatomical layers and we applied a sterile dressing. This was a clean case, no contamination. Job ID: [id number]
[2018-12-13] MEDS: Mometasone/Formoterol 120 PUFF INHALER INH SCH (21:57)
[2018-12-14] MEDS: HYDROmorphone 2 MG TAB PO PRN (00:02)
[2018-12-14] MEDS: Promethazine 25 MG TAB PO PRN (00:02)
[2018-12-14] MEDS: Acetaminophen 325 MG TAB PO PRN (00:02)
[2018-12-14] MEDS ORDERED: diphenhydrAMINE 50 MG/ML VIAL IM/IV PRN (00:25)
[2018-12-14] MEDS ORDERED: Ondansetron PF 4 MG/2 ML Vial IVP PRN (00:25)
[2018-12-14] MEDS ORDERED: Naloxone HCl 0.4 mg/ml Vial IV PRN (00:25)
[2018-12-14] MEDS ORDERED: diphenhydrAMINE 25 MG CAP PO PRN (00:25)
[2018-12-14] MEDS ORDERED: Promethazine HCl 25 MG/ML VIAL IM PRN (00:25)
[2018-12-14] MEDS: HYDROmorphone 10 mg/100 ml CADD IV PRN ×2 (01:00→13:34)
[2018-12-14] MEDS: Vancomycin HCl 1 GM in Premix Bag 1 BAG IVPB SCH ×2 (03:34→13:34)
[2018-12-14] MEDS: diphenhydrAMINE 25 MG CAP PO PRN ×2 (03:34→19:23)
[2018-12-14] MEDS: tiZANidine HCl 4 MG TAB PO PRN ×2 (03:34→19:23)
[2018-12-14 04:38] LABS: Hemoglobin 12.6 g/dL (14.0-18.0)
[2018-12-14] MEDS ORDERED: cloNIDine 0.1 MG TAB PO PRN (07:29)
[2018-12-14] MEDS ORDERED: Non-Formulary Item 1 EACH (Omeprazole [Omeprazole] 40 MG) PO SCH (09:00)
[2018-12-14] MEDS ORDERED: Tadalafil [Cialis] 5 MG PO SCH (09:00)
[2018-12-14] MEDS ORDERED: Docusate Sodium 100 MG/10 ML UDCUP PO SCH (09:00)
[2018-12-14] MEDS: Carvedilol 25 MG TAB PO SCH ×2 (09:09→19:22)
[2018-12-14] MEDS: Amlodipine 5 MG TAB PO SCH ×2 (09:09→19:22)
[2018-12-14] MEDS: buPROPion 75 MG TAB PO SCH ×2 (09:09→19:23)
[2018-12-14] MEDS: Allopurinol 300 MG TAB PO SCH (09:09)
[2018-12-14] MEDS: Fenofibrate Nanocrystallized 145 MG TAB PO SCH (09:10)
[2018-12-14] MEDS: Morphine ER 30 MG TAB PO SCH ×2 (09:10→19:23)
[2018-12-14] MEDS: Cyclobenzaprine 10 MG TAB PO SCH ×2 (09:10→19:22)
[2018-12-14] MEDS: DULoxetine 60 MG CAP PO SCH ×2 (09:10→19:22)
[2018-12-14] MEDS: Mometasone/Formoterol 120 PUFF INHALER INH SCH ×2 (09:23→19:23)
[2018-12-14] MEDS: Docusate Sodium 100 MG/10 ML UDCUP PO SCH (09:29)
--- NOTE | 2018-12-14 10:00 | EKG ---
Test Reason : PREOP Blood Pressure : / mmHG Vent. Rate : 057 BPM Atrial Rate : 057 BPM P-R Int : 152 ms QRS Dur : 102 ms QT Int : 438 ms P-R-T Axes : 021 -06 -09 degrees QTc Int : 426 ms Sinus bradycardia Inferior infarct (cited on or before 15-MAR-2016) Abnormal ECG When compared with ECG of 15-MAR-2016 13:43, No significant change was found Confirmed by DR. Tyler BURGOS ([id number]) on 12/14/2018 10:00:23 AM Referred By: SIOBHAN Confirmed By:DR. Tyler BURGOS
[2018-12-14] MEDS: Sodium Chloride 0.9% 1,000 ML IV SCH (13:34)
[2018-12-14] MEDS: Polyethylene Glycol 3350 17 GM Packet PO PRN (18:21)
[2018-12-14] MEDS: Docusate 100 MG CAP PO SCH (19:22)
[2018-12-14] MEDS: clonazePAM 1 MG TAB PO SCH (19:23)
[2018-12-15] MEDS: Vancomycin HCl 1 GM in Premix Bag 1 BAG IVPB SCH ×2 (02:59→15:05)
[2018-12-15] MEDS: tiZANidine HCl 4 MG TAB PO PRN (03:00)
[2018-12-15] MEDS: diphenhydrAMINE 25 MG CAP PO PRN (03:00)
[2018-12-15] MEDS: HYDROmorphone 2 MG TAB PO PRN (04:31)
[2018-12-15] MEDS: Promethazine 25 MG TAB PO PRN (04:40)
[2018-12-15] MEDS: Acetaminophen 325 MG TAB PO PRN (04:41)
[2018-12-15] MEDS: Mometasone/Formoterol 120 PUFF INHALER INH SCH ×2 (07:29→19:25)
[2018-12-15] MEDS: Docusate 100 MG CAP PO SCH ×2 (08:20→21:14)
[2018-12-15] MEDS: Fenofibrate Nanocrystallized 145 MG TAB PO SCH (08:20)
[2018-12-15] MEDS: Cyclobenzaprine 10 MG TAB PO SCH ×2 (08:21→21:15)
[2018-12-15] MEDS: Amlodipine 5 MG TAB PO SCH ×2 (08:21→21:14)
[2018-12-15] MEDS: buPROPion 75 MG TAB PO SCH ×2 (08:21→21:13)
[2018-12-15] MEDS: Morphine ER 30 MG TAB PO SCH ×2 (08:21→21:19)
[2018-12-15] MEDS: DULoxetine 60 MG CAP PO SCH ×2 (08:21→21:15)
[2018-12-15] MEDS: Allopurinol 300 MG TAB PO SCH (08:21)
[2018-12-15] MEDS: Carvedilol 25 MG TAB PO SCH ×2 (08:21→21:15)
[2018-12-15] MEDS: Sodium Chloride 0.9% 1,000 ML IV SCH ×2 (08:22→21:25)
[2018-12-15] MEDS: HYDROmorphone 10 mg/100 ml CADD IV PRN (10:39)
--- NOTE | 2018-12-15 16:34 | PRG ---
DATE OF SERVICE: 12/15/2018 Mr. Cagle is doing reasonably well. He has certainly improved from his surgery with respect to his preoperative symptoms of headache and cervical myelopathy. He has significant pain management issues and muscle spasm as expected, but overall his progress has been reasonable. We will continue to mobilize him towards discharge and he was able to ambulate in the ledbetter successfully yesterday. Job ID: [id number]
[2018-12-15] MEDS: Polyethylene Glycol 3350 17 GM Packet PO PRN (21:20)
[2018-12-15] MEDS: clonazePAM 1 MG TAB PO SCH (21:22)
[2018-12-16] MEDS: Vancomycin HCl 1 GM in Premix Bag 1 BAG IVPB SCH (03:10)
[2018-12-16] MEDS: Cyclobenzaprine 10 MG TAB PO SCH ×2 (08:24→20:01)
[2018-12-16] MEDS: Docusate 100 MG CAP PO SCH ×2 (08:24→20:00)
[2018-12-16] MEDS: DULoxetine 60 MG CAP PO SCH ×2 (08:24→20:00)
[2018-12-16] MEDS: Carvedilol 25 MG TAB PO SCH ×2 (08:24→20:01)
[2018-12-16] MEDS: Morphine ER 30 MG TAB PO SCH ×2 (08:24→20:01)
[2018-12-16] MEDS: Fenofibrate Nanocrystallized 145 MG TAB PO SCH (08:25)
[2018-12-16] MEDS: buPROPion 75 MG TAB PO SCH ×2 (08:25→20:00)
[2018-12-16] MEDS: Amlodipine 5 MG TAB PO SCH ×2 (08:25→20:00)
[2018-12-16] MEDS: Allopurinol 300 MG TAB PO SCH (08:25)
[2018-12-16] MEDS: tiZANidine HCl 4 MG TAB PO PRN (10:05)
[2018-12-16] MEDS: Mometasone/Formoterol 120 PUFF INHALER INH SCH ×2 (10:27→19:24)
[2018-12-16] MEDS: HYDROmorphone 10 mg/100 ml CADD IV PRN (10:45)
[2018-12-16] MEDS: Sodium Chloride 0.9% 1,000 ML IV SCH (11:38)
[2018-12-16] MEDS: Acetaminophen 325 MG TAB PO PRN (14:39)
[2018-12-16] MEDS: clonazePAM 1 MG TAB PO SCH (20:00)
[2018-12-17] MEDS: Sodium Chloride 0.9% 1,000 ML IV SCH ×2 (01:12→16:23)
[2018-12-17] MEDS: Mometasone/Formoterol 120 PUFF INHALER INH SCH ×2 (06:57→18:47)
--- NOTE | 2018-12-17 07:47 | PRG ---
DATE OF SERVICE: 12/17/2018 Mr. Cagle is 4 days out from a posterior cervical laminectomy and fusion. He is resting in his hospital bed this morning. CPAP is on. His biggest complaint is spasms in his trapezius when he stands or sits up, and this is unlike any other pain that he has had before. The patient does state that his myelopathic symptoms have improved since prior to surgery. He has more function in his hands and less numbness and tingling and less severe headache. If the patient has proper followup with his pain management and it is safe for him for activities of daily living, he will be discharged. Job ID: [id number]
[2018-12-17] MEDS: tiZANidine HCl 4 MG TAB PO PRN (08:37)
[2018-12-17] MEDS: Morphine ER 30 MG TAB PO SCH ×2 (08:38→20:46)
[2018-12-17] MEDS: Docusate 100 MG CAP PO SCH (08:38)
[2018-12-17] MEDS: Cyclobenzaprine 10 MG TAB PO SCH ×2 (08:39→20:46)
[2018-12-17] MEDS: buPROPion 75 MG TAB PO SCH ×2 (08:39→20:45)
[2018-12-17] MEDS: Amlodipine 5 MG TAB PO SCH ×2 (08:39→20:48)
[2018-12-17] MEDS: Allopurinol 300 MG TAB PO SCH (08:39)
[2018-12-17] MEDS: DULoxetine 60 MG CAP PO SCH ×2 (08:39→20:45)
[2018-12-17] MEDS: Carvedilol 25 MG TAB PO SCH ×2 (08:40→20:46)
[2018-12-17] MEDS ORDERED: HYDROmorphone 2 MG/ML VIAL SLOW IVP SCH (10:30)
[2018-12-17] MEDS: HYDROmorphone 10 mg/100 ml CADD IV PRN (10:54)
[2018-12-17] MEDS: HYDROmorphone 2 MG TAB PO PRN ×2 (11:05→15:56)
[2018-12-17] MEDS: Fenofibrate Nanocrystallized 145 MG TAB PO SCH (11:09)
[2018-12-17] MEDS ORDERED: Acetaminophen 1,000 MG in Premix Bag 1 BAG IVPB SCH (11:15)
[2018-12-17] MEDS: Polyethylene Glycol 3350 17 GM Packet PO PRN ×2 (12:31→20:55)
[2018-12-17] MEDS: Acetaminophen 500 MG TAB PO SCH (19:57)
[2018-12-17] MEDS: Docusate Sodium 100 MG/10 ML UDCUP PO SCH (20:49)
[2018-12-17] MEDS: clonazePAM 1 MG TAB PO SCH (21:00)
[2018-12-18] MEDS: Acetaminophen 500 MG TAB PO SCH ×5 (00:03→23:49)
[2018-12-18] MEDS: Sodium Chloride 0.9% 1,000 ML IV SCH ×2 (04:28→17:20)
[2018-12-18] MEDS: Mometasone/Formoterol 120 PUFF INHALER INH SCH ×2 (07:06→19:31)
[2018-12-18] MEDS: Cyclobenzaprine 10 MG TAB PO SCH ×2 (10:04→20:42)
[2018-12-18] MEDS: Carvedilol 25 MG TAB PO SCH ×2 (10:04→20:41)
[2018-12-18] MEDS: buPROPion 75 MG TAB PO SCH ×2 (10:04→20:42)
[2018-12-18] MEDS: Allopurinol 300 MG TAB PO SCH (10:04)
[2018-12-18] MEDS: DULoxetine 60 MG CAP PO SCH ×2 (10:05→20:41)
[2018-12-18] MEDS: Morphine ER 30 MG TAB PO SCH ×2 (10:05→20:42)
[2018-12-18] MEDS: Amlodipine 5 MG TAB PO SCH ×2 (10:05→20:43)
[2018-12-18] MEDS: Fenofibrate Nanocrystallized 145 MG TAB PO SCH (10:06)
[2018-12-18] MEDS: Docusate Sodium 100 MG/10 ML UDCUP PO SCH ×2 (10:06→20:44)
[2018-12-18] MEDS: HYDROmorphone 2 MG TAB PO PRN ×2 (14:29→18:22)
[2018-12-18] MEDS: tiZANidine HCl 4 MG TAB PO PRN ×2 (14:30→23:49)
[2018-12-18] MEDS: HYDROmorphone 10 mg/100 ml CADD IV PRN (14:38)
--- NOTE | 2018-12-18 16:35 | PRG ---
DATE OF SERVICE: 12/18/2018 I seen Mr. Cagle each of the 3 previous mornings. His postoperative course is going as expected. That is, he has significant neurological improvement and subjective improvement in the hand sensation. Yet, his postoperative pain control has been a serious issue. This was completely expected and predictable. Mr. Cagle seems to be making progress with his pain control and he is becoming more and more mobile as the days go by. Once he is safe for his activities of daily living and has oral regimen of analgesics that will keep him under reasonable control of his pain, he can be discharged. I do not know when this will happen. Job ID: [id number]
[2018-12-18] MEDS: Ibuprofen 800 MG TAB PO SCH (20:41)
[2018-12-18] MEDS: clonazePAM 1 MG TAB PO SCH (20:43)
[2018-12-19] MEDS: Mometasone/Formoterol 120 PUFF INHALER INH SCH (06:26)
[2018-12-19] MEDS: Acetaminophen 500 MG TAB PO SCH ×2 (06:33→13:38)
[2018-12-19] MEDS: Sodium Chloride 0.9% 1,000 ML IV SCH (06:39)
[2018-12-19 08:02] VITALS: TEMP 97.9
[2018-12-19] MEDS: Morphine ER 30 MG TAB PO SCH (09:16)
[2018-12-19] MEDS: Amlodipine 5 MG TAB PO SCH (09:17)
[2018-12-19] MEDS: Allopurinol 300 MG TAB PO SCH (09:17)
[2018-12-19] MEDS: Fenofibrate Nanocrystallized 145 MG TAB PO SCH (09:17)
[2018-12-19] MEDS: Carvedilol 25 MG TAB PO SCH (09:18)
[2018-12-19] MEDS: buPROPion 75 MG TAB PO SCH (09:18)
[2018-12-19] MEDS: Ibuprofen 800 MG TAB PO SCH (09:18)
[2018-12-19] MEDS: Docusate Sodium 100 MG/10 ML UDCUP PO SCH (09:18)
[2018-12-19] MEDS: DULoxetine 60 MG CAP PO SCH (09:18)
[2018-12-19] MEDS: Cyclobenzaprine 10 MG TAB PO SCH (09:18)
[2018-12-19 11:52] VITALS: BP 168/97
[2018-12-19] MEDS: tiZANidine HCl 4 MG TAB PO PRN (13:38)
[2018-12-19] MEDS: HYDROmorphone 2 MG TAB PO PRN (13:39)
== END 2018-12-19 15:05 | disposition home or self-care (01) | DRG 472 ==
LOC: SURG A 12-13 07:26 → SURG B 12-13 19:53
PROVIDERS: ADMIT Neurological Surgery; ATTEND Neurological Surgery
PROC: 0RG2071 Fusion of 2 or more Cervical Vertebral Joints with Autologous Tissue Substitute, Posterior Approach, Posterior Column, Open Approach (ICD-10-PCS; principal; 2018-12-13)
DX: M48.02 Spinal stenosis, cervical region (principal); G99.2 Myelopathy in diseases classified elsewhere; M10.9 Gout, unspecified; F32.9 Major depressive disorder, single episode, unspecified; K21.9 Gastro-esophageal reflux disease without esophagitis; E78.5 Hyperlipidemia, unspecified; M50.10 Cervical disc disorder with radiculopathy, unspecified cervical region; F41.9 Anxiety disorder, unspecified; I12.9 Hypertensive chronic kidney disease with stage 1 through stage 4 chronic kidney disease, or unspecified chronic kidney disease; J44.9 Chronic obstructive pulmonary disease, unspecified; M54.81 Occipital neuralgia; N18.9 Chronic kidney disease, unspecified; M62.830 Muscle spasm of back; Z90.49 Acquired absence of other specified parts of digestive tract; Z95.5 Presence of coronary angioplasty implant and graft; Z88.1 Allergy status to other antibiotic agents; Z88.8 Allergy status to other drugs, medicaments and biological substances
CPT/HCPCS: 36415; 76000; 80048; 85014; 85018; 85027; 85610; 85730; 87081; 93005; 93010; 94664; C1713; C1768; J0131; J0670; J1071; J1100; J1170; J2001; J2250; J2405; J2550; J2704; J3010; J3370; J3490; P9045; Q0163; Q0169

== ENCOUNTER 2019-02-04 13:55 | Outpatient (CLI) | payer MEDICARE ==
--- NOTE | 2019-02-04 15:22 | RAD ---
THREE VIEWS OF THE CERVICAL SPINE: 02/04/19 COMPARISON: 11/21/18 HISTORY: Status post neck surgery. No complaints. FINDINGS: AP, lateral, and open mouth odontoid views of the cervical spine shows the patient to be status post anterior fusion of C3 and C4 as well as C4 and C5. The vertebral bodies demonstrate normal alignment without subluxation. The patient is also status post posterior fusion of C3 through C7. No perihardwa re lucency is present. IMPRESSION: Postsurgical changes of the cervical spine without evidence of complication. POS: [facility]
== END 2019-02-04 13:56 | disposition home or self-care (01) ==
LOC: TBSIIMAG 13:55
PROVIDERS: ATTEND Neurological Surgery
DX: M54.12 Radiculopathy, cervical region (principal); Z98.1 Arthrodesis status
CPT/HCPCS: 72040

== ENCOUNTER 2020-02-06 11:08 | Outpatient (CLI) | payer MEDICARE ==
--- NOTE | 2020-02-06 11:29 | RAD ---
Radiograph right shoulder 3 views: 02/06/2020 HISTORY: 54-year-old male with right shoulder pain FINDINGS: No fracture or dislocation. Minimal DJD at glenohumeral joint. Mild DJD at AC joint. ACDF hardware an d posterior element hardware in C-spine. No rotator cuff calcifications. No destructive osseous lesion. IMPRESSION: Mild osteoarthrosis of right shoulder. No major pathology identified in shoulder.
== END 2020-02-06 11:09 | disposition home or self-care (01) ==
LOC: SCSRAD 11:08
PROVIDERS: ATTEND Family Medicine
DX: M25.511 Pain in right shoulder (principal); M19.011 Primary osteoarthritis, right shoulder

== ENCOUNTER 2020-04-07 17:38 | Outpatient (CLI) | payer MEDICARE ==
--- NOTE | 2020-04-07 18:13 | SJPRAD ---
RADIOGRAPH CHEST 2 VIEWS: DATE: 04/07/2020 HISTORY: 54-year-old male with cough FINDINGS: There is no airspace density, pulmonary edema, pleural effusion, pneumothorax, or cardiomegaly. IMPRESSION: No acute cardiopulmonary findings.
== END 2020-04-07 17:39 | disposition home or self-care (01) ==
LOC: SCSRAD 17:38
PROVIDERS: ATTEND Nurse Practitioner Family
DX: J44.9 Chronic obstructive pulmonary disease, unspecified (principal)
CPT/HCPCS: 87635; U0003

== ENCOUNTER 2020-12-23 17:02 | Inpatient (IN) | payer MEDICARE ==
[2020-12-23] MEDS ORDERED: Dextrose 50% Abboject 50 ML SYRINGE SLOW IVP PRN (18:00)
[2020-12-23] MEDS ORDERED: Morphine 2 MG/ML VIAL SLOW IVP PRN (18:00)
[2020-12-23] MEDS ORDERED: Dextrose 5% in Water 1,000 ML IV PRN (18:00)
[2020-12-23] MEDS ORDERED: Ondansetron PF 4 MG/2 ML Vial IVP PRN (18:01)
[2020-12-23] MEDS ORDERED: Lorazepam 2 MG/ML VIAL SLOW IVP PRN (18:01)
[2020-12-23] MEDS ORDERED: Cyclobenzaprine 10 MG TAB PO PRN (18:03)
[2020-12-23] MEDS ORDERED: hydrALAZINE 20 MG/ML VIAL SLOW IVP PRN (18:07)
[2020-12-23] MEDS: Ketorolac Tromethamine 30 MG/ML VIAL IVP SCH ×2 (18:19→23:36)
[2020-12-23] MEDS: Acetaminophen 500 MG TAB PO SCH ×2 (18:25→23:34)
[2020-12-23] MEDS: traMADol HCl 50 MG TAB PO SCH (18:26)
[2020-12-23 18:29] LABS: #Basophils 0.1 thou/uL (0.0-0.2); #Eosinphils 0.1 thou/uL (0.0-0.7); #Lymphocytes 1.8 thou/uL (1.20-3.40); #Monocytes 0.9 thou/uL (0.11-0.59); #Neutrophils 4.9 thou/uL (1.40-6.50); %Basophils 1.1 % (0.0-1.0); %Eosinophils 1.5 % (0.0-10.0); %Lymphocytes 22.9 % (21.0-51.0); %Monocytes 11.3 % (0.0-10.0); %Neutrophils 63.2 % (42.0-75.0); Hemoglobin 18.2 g/dL (14.0-18.0); Mean Corpuscular HGB CONC 33.4 g/dL (32.0-36.0); Mean Corpuscular Volume 95.9 fL (78.0-98.0); Mean Platelet Volume 7.9 fL (7.4-10.4); Platelet Count 236 thou/uL (130-400); RBC Distribution Width 11.7 % (11.5-14.5); Red Blood Cell (RBC) Count 5.69 mill/uL (4.70-6.10); White Blood Cell (WBC) Count 7.7 thou/uL (4.8-10.8)
[2020-12-23 18:48] LABS: ALT (SGPT) 65 U/L (8-55); AST (SGOT) 38 U/L (5-34); Albumin 4.6 g/dL (3.5-5.0); Alkaline Phosphatase 49 U/L (40-110); Anion Gap 14 mmol/L (10-20); BUN (Urea Nitrogen) 13 mg/dL (8.4-25.7); Bilirubin, Total 0.6 mg/dL (0.2-1.2); Calc. Creatinine Clearance 0 mL/min (70-130); Calcium 9.9 mg/dL (7.8-10.44); Carbon Dioxide 20 mmol/L (22-29); Chloride 105 mmol/L (98-107); Globulin 2.9 g/dL (2.4-3.5); Glucose 100 mg/dL (70-105); Magnesium 2.1 mg/dL (1.6-2.6); Phosphorus 3.7 mg/dL (2.3-4.7); Potassium 4.3 mmol/L (3.5-5.1); Protein, Total 7.5 g/dL (6.0-8.3); Sodium 135 mmol/L (136-145)
[2020-12-23] MEDS ORDERED: Sodium Chloride 0.9% 1,000 ML IV SCH (19:45)
[2020-12-23 20:01] VITALS: BMI 41.0
[2020-12-23] MEDS ORDERED: Gabapentin 300 MG CAP PO SCH (21:00)
[2020-12-23] MEDS: Famotidine 20 MG TAB PO SCH (21:22)
[2020-12-23] MEDS: Senokot S 8.6-50 MG TAB PO SCH (21:22)
[2020-12-23] MEDS: Cyclobenzaprine 10 MG TAB PO PRN (21:24)
[2020-12-23] MEDS ORDERED: Carvedilol 25 MG TAB PO SCH (23:30)
[2020-12-23] MEDS ORDERED: Amlodipine 5 MG TAB PO SCH (23:30)
[2020-12-23] MEDS ORDERED: Aripiprazole 10 MG TAB PO SCH (23:30)
[2020-12-23] MEDS ORDERED: clonazePAM 1 MG TAB PO SCH (23:30)
[2020-12-23] MEDS ORDERED: busPIRone HCl 5 MG TAB PO SCH (23:30)
[2020-12-24] MEDS: traMADol HCl 50 MG TAB PO SCH ×4 (02:21→17:40)
[2020-12-24 06:06] LABS: Anion Gap 14 mmol/L (10-20); BUN (Urea Nitrogen) 17 mg/dL (8.4-25.7); Calc. Creatinine Clearance 89 mL/min (70-130); Calcium 9.2 mg/dL (7.8-10.44); Carbon Dioxide 23 mmol/L (22-29); Chloride 102 mmol/L (98-107); Glucose 100 mg/dL (70-105); Magnesium 2.2 mg/dL (1.6-2.6); Phosphorus 4.1 mg/dL (2.3-4.7); Potassium 5.1 mmol/L (3.5-5.1); Sodium 134 mmol/L (136-145)
[2020-12-24] MEDS: Acetaminophen 500 MG TAB PO SCH ×3 (06:11→17:39)
[2020-12-24] MEDS: Cyclobenzaprine 10 MG TAB PO PRN ×2 (06:11→18:43)
[2020-12-24] MEDS: Ketorolac Tromethamine 30 MG/ML VIAL IVP SCH (06:14)
[2020-12-24 07:07] LABS: Hemoglobin 17.3 g/dL (14.0-18.0); Mean Corpuscular HGB CONC 34.2 g/dL (32.0-36.0); Mean Corpuscular Volume 96.5 fL (78.0-98.0); Mean Platelet Volume 7.8 fL (7.4-10.4); Platelet Count 224 thou/uL (130-400); RBC Distribution Width 11.6 % (11.5-14.5); Red Blood Cell (RBC) Count 5.25 mill/uL (4.70-6.10); White Blood Cell (WBC) Count 7.8 thou/uL (4.8-10.8)
[2020-12-24 07:46] LABS: Eosinophils 1 % (0-10); Lymphocytes 17 % (21-51); MDiff Complete? YES; Monocytes 12 % (0-10); Neutrophil 68 % (42-75); Platelet Morphology Comment Appears Adequate; RBC Morphology Normal; Reactive Lymphocytes 2 % (0-10)
[2020-12-24] MEDS ORDERED: Furosemide 20 MG TAB PO PRN (08:31)
[2020-12-24] MEDS ORDERED: clonazePAM 0.5 MG TAB PO PRN (08:31)
[2020-12-24] MEDS ORDERED: Gabapentin 300 MG CAP PO SCH (09:00)
[2020-12-24] MEDS: Polyethylene Glycol 3350 17 GM Packet PO SCH (09:21)
[2020-12-24] MEDS: Zinc Sulfate 220 MG CAP PO SCH (09:22)
[2020-12-24] MEDS: Carvedilol 25 MG TAB PO SCH ×2 (09:22→17:39)
[2020-12-24] MEDS: Bupropion 150 MG XL TAB PO SCH (09:22)
[2020-12-24] MEDS: busPIRone HCl 5 MG TAB PO SCH ×2 (09:23→20:30)
[2020-12-24] MEDS: Cholecalciferol 1,000 UNITS (25 MCG) TAB PO SCH (09:23)
[2020-12-24] MEDS: Ascorbic Acid 500 mg Chewable Tablet PO SCH (09:24)
[2020-12-24] MEDS: Tamsulosin HCl 0.4 MG CAP PO SCH (09:24)
[2020-12-24] MEDS: Famotidine 20 MG TAB PO SCH ×2 (09:24→20:28)
[2020-12-24] MEDS: Allopurinol 300 MG TAB PO SCH ×2 (09:24→09:34)
[2020-12-24] MEDS: Amlodipine 5 MG TAB PO SCH ×2 (09:24→20:30)
[2020-12-24] MEDS: Aspirin 325 MG TAB PO SCH (09:24)
[2020-12-24] MEDS: Senokot S 8.6-50 MG TAB PO SCH ×2 (09:25→20:28)
[2020-12-24 12:29] LABS: SARS-CoV-2 PCR by NAA Not Detected (NotDetected)
[2020-12-24] MEDS: Dexamethasone 1 MG TAB PO SCH ×2 (17:39→20:31)
[2020-12-24] MEDS ORDERED: clonazePAM 1 MG TAB PO SCH (21:00)
[2020-12-24] MEDS ORDERED: Aripiprazole 10 MG TAB PO SCH (21:00)
[2020-12-25] MEDS: traMADol HCl 50 MG TAB PO SCH ×3 (00:26→12:44)
[2020-12-25] MEDS: Acetaminophen 500 MG TAB PO SCH ×3 (00:26→12:43)
[2020-12-25] MEDS: Cyclobenzaprine 10 MG TAB PO PRN ×2 (05:57→15:06)
[2020-12-25 06:15] LABS: Anion Gap 15 mmol/L (10-20); BUN (Urea Nitrogen) 14 mg/dL (8.4-25.7); Calc. Creatinine Clearance 110 mL/min (70-130); Calcium 9.4 mg/dL (7.8-10.44); Carbon Dioxide 22 mmol/L (22-29); Chloride 103 mmol/L (98-107); Glucose 118 mg/dL (70-105); Magnesium 2.1 mg/dL (1.6-2.6); Phosphorus 3.2 mg/dL (2.3-4.7); Potassium 4.5 mmol/L (3.5-5.1); Sodium 135 mmol/L (136-145)
[2020-12-25] MEDS: Tamsulosin HCl 0.4 MG CAP PO SCH (09:10)
[2020-12-25] MEDS: Bupropion 150 MG XL TAB PO SCH (09:10)
[2020-12-25] MEDS: Senokot S 8.6-50 MG TAB PO SCH (09:10)
[2020-12-25] MEDS: Zinc Sulfate 220 MG CAP PO SCH (09:10)
[2020-12-25] MEDS: Dexamethasone 1 MG TAB PO SCH ×2 (09:10→12:43)
[2020-12-25] MEDS: Carvedilol 25 MG TAB PO SCH (09:11)
[2020-12-25] MEDS: Ascorbic Acid 500 mg Chewable Tablet PO SCH (09:11)
[2020-12-25] MEDS: Aspirin 325 MG TAB PO SCH (09:11)
[2020-12-25] MEDS: busPIRone HCl 5 MG TAB PO SCH (09:11)
[2020-12-25] MEDS: Famotidine 20 MG TAB PO SCH (09:11)
[2020-12-25] MEDS: Amlodipine 5 MG TAB PO SCH (09:12)
[2020-12-25] MEDS: Allopurinol 300 MG TAB PO SCH ×2 (09:13→09:35)
[2020-12-25] MEDS: Cholecalciferol 1,000 UNITS (25 MCG) TAB PO SCH (09:13)
[2020-12-25] MEDS: Polyethylene Glycol 3350 17 GM Packet PO SCH (09:36)
[2020-12-25] MEDS ORDERED: Ibuprofen 800 MG TAB PO SCH (10:00)
[2020-12-25] MEDS ORDERED: Ibuprofen 200 MG TAB PO SCH (10:00)
[2020-12-25 12:13] VITALS: BP 123/78; TEMP 97.7
== END 2020-12-25 15:27 | disposition home or self-care (01) | DRG 74 ==
LOC: SURG B 17:54 → OBSVTOIN 17:54
PROVIDERS: ADMIT Surgery; ATTEND Surgery
DX: M54.12 Radiculopathy, cervical region (principal); I11.0 Hypertensive heart disease with heart failure; I50.9 Heart failure, unspecified; F43.10 Post-traumatic stress disorder, unspecified; G89.29 Other chronic pain; G47.33 Obstructive sleep apnea (adult) (pediatric); Z96.641 Presence of right artificial hip joint; Z88.8 Allergy status to other drugs, medicaments and biological substances; Z79.899 Other long term (current) drug therapy; Z88.1 Allergy status to other antibiotic agents; Z79.82 Long term (current) use of aspirin; Z87.891 Personal history of nicotine dependence
CPT/HCPCS: 36415; 80048; 80053; 83735; 84100; 85025; 94660; 96374; 96375; 96376; G0378; J0360; J1885; J2270; J2405; J8540; U0003; U0005

== ENCOUNTER 2023-01-07 13:51 | Observation (INO) | payer MEDICARE ==
[2023-01-07] MEDS ORDERED: Morphine 4 MG/ML VIAL ONE ×2 (14:13→15:26)
[2023-01-07] MEDS ORDERED: Ondansetron PF 4 MG/2 ML Vial ONE ×2 (14:14→18:19)
[2023-01-07] MEDS ORDERED: Ketorolac Tromethamine 30 MG/ML VIAL ONE (14:14)
[2023-01-07 14:41] LABS: #Basophils 0.1 thou/uL (0.0-0.2); #Eosinphils 0.2 thou/uL (0.0-0.7); #Monocytes 0.7 thou/uL (0.11-0.59); #Neutrophils 4.2 thou/uL (1.40-6.50); %Basophils 1.1 % (0.0-1.0); %Eosinophils 2.3 % (0.0-10.0); %Lymphocytes 22.4 % (21.0-51.0); %Monocytes 10.4 % (0.0-10.0); %Neutrophils 63.3 % (42.0-75.0); Hemoglobin 13.7 g/dL (14.0-18.0); Mean Corpuscular HGB CONC 34.6 g/dL (32.0-36.0); Mean Corpuscular Hemoglobin 32.2 pg (27.0-31.0); Mean Corpuscular Volume 93.2 fl (78.0-98.0); Mean Platelet Volume 9.7 fL (7.4-10.4); Platelet Count 303 10x3/uL (130-400); RBC Distribution Width 12.6 % (11.5-14.5); Red Blood Cell (RBC) Count 4.25 mill/uL (4.70-6.10); White Blood Cell (WBC) Count 6.6 10x3/uL (4.8-10.8)
[2023-01-07 14:44] LABS: Bacteria/HPF None Seen HPF (None Seen); Bilirubin Negative (Negative); Blood, Urine Trace (Negative); CAUTI Indications for Culture Dysuria,urgency,freq; Clarity Clear (Clear); Glucose, Urine (Dipstick) Normal (Negative); Ketone, Urine Negative (Negative); Leukocyte Negative Leu/uL (Negative); Nitrite Negative (Negative); Protein, Urine (Dipstick) Negative (Neg-Trace); Specific Gravity, Urine 1.017 (1.002-1.036); Squamous Epithelial 0-3 HPF (0-3); Urobilinogen Normal mg/dL (Less than 2); WBC/HPF 0-3 HPF (0-3)
[2023-01-07 14:45] LABS: Urine Culture Reflex No No
[2023-01-07 15:03] LABS: ALT (SGPT) 18 U/L (8-55); AST (SGOT) 13 U/L (5-34); Albumin 4.5 g/dL (3.5-5.0); Alkaline Phosphatase 48 U/L (40-110); Anion Gap 12 mmol/L (10-20); BUN (Urea Nitrogen) 31 mg/dL (8.4-25.7); Bilirubin, Total 0.3 mg/dL (0.2-1.2); Calc. Creatinine Clearance 0 mL/min (70-130); Calcium 9.6 mg/dL (7.8-10.44); Carbon Dioxide 20 mmol/L (22-29); Chloride 108 mmol/L (98-107); Estimated GFR 41; Globulin 2.4 g/dL (2.4-3.5); Glucose 108 mg/dL (70-105); Potassium 4.6 mmol/L (3.5-5.1); Protein, Total 6.9 g/dL (6.0-8.3); Sodium 135 mmol/L (136-145)
[2023-01-07] MEDS ORDERED: Midazolam HCl 2 mg/2 ml Vial ONE (17:13)
[2023-01-07] MEDS ORDERED: fentaNYL PF 100 MCG/2 ML SYRINGE ONE (17:13)
[2023-01-07] MEDS ORDERED: Iopamidol 0 ML ONE (17:31)
[2023-01-07] MEDS ORDERED: Phenylephrine 10 MG/ML VIAL ONE (17:46)
[2023-01-07] MEDS ORDERED: Nitroglycerin 2% Ointment 1 INCH/1 GM Packet ONE (17:46)
[2023-01-07] MEDS ORDERED: PHENYLEPHRINE-NS 100 MCG/ML 10 ML SYRINGE ONE (18:19)
[2023-01-07] MEDS ORDERED: diphenhydrAMINE 50 MG/ML VIAL ONE (18:19)
[2023-01-07] MEDS ORDERED: Dexamethasone 20 MG/5 ML VIAL ONE (18:19)
[2023-01-07] MEDS ORDERED: Rocuronium Bromide 10 MG/ML (10ML VIAL) ONE (18:19)
[2023-01-07] MEDS ORDERED: Esmolol 100 MG/10 ML VIAL ONE (18:19)
[2023-01-07] MEDS ORDERED: Lidocaine 1% PF 5 ML VIAL ONE (18:19)
[2023-01-07] MEDS ORDERED: SUGAMMADEX SODIUM 200 MG/2 ML VIAL ONE ×2 (18:31→19:02)
[2023-01-07] MEDS ORDERED: Hydrocortisone Sod Succ/PF 100 mg/2 ml Vial ONE (18:35)
[2023-01-07] MEDS ORDERED: Famotidine/PF 20 mg/2ml Vial ONE (18:35)
[2023-01-07] MEDS ORDERED: Magnesium 5 GM/10 ML VIAL ONE (18:36)
[2023-01-07] MEDS ORDERED: Promethazine HCl 25 MG/ML VIAL IM PRN (18:46)
[2023-01-07] MEDS ORDERED: Ondansetron HCl/PF 4 MG/2 ML Vial IVP PRN (18:46)
[2023-01-07] MEDS ORDERED: Ipratropium/Albuterol 3 ML NEB ONE (19:07)
[2023-01-07] MEDS ORDERED: Acetaminophen 325 MG TAB PO PRN (19:28)
[2023-01-07] MEDS ORDERED: Ondansetron PF 4 MG/2 ML Vial IVP PRN (19:28)
[2023-01-07] MEDS ORDERED: Ipratropium/Albuterol 3 ML NEB IPPB PRN (19:30)
[2023-01-07] MEDS ORDERED: fentaNYL 50 mcg/mL 1 mL Vial ONE ×2 (20:00→20:40)
[2023-01-07] MEDS ORDERED: Tamsulosin HCl 0.4 MG CAP PO SCH (22:00)
[2023-01-07 22:55] VITALS: BMI 35.3
[2023-01-08 04:19] LABS: #Monocytes 0.1 thou/uL (0.11-0.59); #Neutrophils 6.5 thou/uL (1.40-6.50); %Basophils 0.1 % (0.0-1.0); %Lymphocytes 6.4 % (21.0-51.0); %Monocytes 0.7 % (0.0-10.0); %Neutrophils 92.2 % (42.0-75.0); Hemoglobin 13.4 g/dL (14.0-18.0); Mean Corpuscular HGB CONC 34.1 g/dL (32.0-36.0); Mean Corpuscular Hemoglobin 32.1 pg (27.0-31.0); Mean Corpuscular Volume 94.2 fl (78.0-98.0); Mean Platelet Volume 9.8 fL (7.4-10.4); Platelet Count 275 10x3/uL (130-400); RBC Distribution Width 12.4 % (11.5-14.5); Red Blood Cell (RBC) Count 4.17 mill/uL (4.70-6.10)
[2023-01-08 04:47] LABS: Anion Gap 11 mmol/L (10-20); BUN (Urea Nitrogen) 28 mg/dL (8.4-25.7); Calc. Creatinine Clearance 76 mL/min (70-130); Calcium 9.1 mg/dL (7.8-10.44); Carbon Dioxide 19 mmol/L (22-29); Chloride 110 mmol/L (98-107); Estimated GFR 50; Glucose 162 mg/dL (70-105); Potassium 4.7 mmol/L (3.5-5.1); Sodium 135 mmol/L (136-145)
[2023-01-08] MEDS ORDERED: traMADol HCl 50 MG TAB PO SCH (10:45)
[2023-01-08] MEDS ORDERED: HYDROcodone/Acetaminophen 5/325 mg Tablet PO PRN (13:47)
[2023-01-08] MEDS ORDERED: Non-Formulary Item 1 EACH (Tizanidine Hcl [Tizanidine Hcl] 2 MG Capsule) PO PRN (13:49)
[2023-01-08] MEDS ORDERED: Evolocumab [Repatha Syringe] 140 MG/ML Syringe SC SCH (14:15)
[2023-01-08 14:16] LABS: ALT (SGPT) 16 U/L (8-55); AST (SGOT) 13 U/L (5-34); Albumin 4.5 g/dL (3.5-5.0); Alkaline Phosphatase 39 U/L (40-110); Anion Gap 11 mmol/L (10-20); BUN (Urea Nitrogen) 24 mg/dL (8.4-25.7); Bilirubin, Total 0.3 mg/dL (0.2-1.2); Calc. Creatinine Clearance 84 mL/min (70-130); Calcium 9.8 mg/dL (7.8-10.44); Carbon Dioxide 21 mmol/L (22-29); Chloride 105 mmol/L (98-107); Estimated GFR 57; Globulin 2.6 g/dL (2.4-3.5); Glucose 97 mg/dL (70-105); Potassium 4.1 mmol/L (3.5-5.1); Protein, Total 7.1 g/dL (6.0-8.3); Sodium 133 mmol/L (136-145)
[2023-01-08 15:29] VITALS: BP 145/82; TEMP 96.6
[2023-01-08] MEDS ORDERED: Carvedilol 25 MG TAB PO SCH (16:30)
[2023-01-08] MEDS ORDERED: Amlodipine 5 MG TAB PO SCH (21:00)
[2023-01-08] MEDS ORDERED: DULoxetine 60 MG CAP PO SCH (21:00)
[2023-01-08] MEDS ORDERED: busPIRone HCl 10 MG TAB PO SCH (21:00)
[2023-01-08] MEDS ORDERED: Tamsulosin HCl 0.4 MG CAP PO SCH ×2 (21:00)
[2023-01-08] MEDS ORDERED: Fish Oil 1,000 MG CAP PO SCH (21:00)
[2023-01-09] MEDS ORDERED: Allopurinol 300 MG TAB PO SCH (09:00)
[2023-01-09] MEDS ORDERED: Bupropion 150 MG XL TAB PO SCH (09:00)
[2023-01-09] MEDS ORDERED: Fenofibrate Nanocrystallized 145 MG TAB PO SCH (09:00)
[2023-01-11 12:15] LABS: CA Oxalate Monohydrate 50 % (.); Color Tan (.); Stone Weight 9 mg (.)
== END 2023-01-08 18:34 | disposition home or self-care (01) ==
LOC: ERS 13:51 → 2NO 19:30
PROVIDERS: ADMIT Internal Medicine; ATTEND Internal Medicine
PROC: 0TC68ZZ Extirpation of Matter from Right Ureter, Via Natural or Artificial Opening Endoscopic (ICD-10-PCS; principal; 2023-01-07)
DX: N13.2 Hydronephrosis with renal and ureteral calculous obstruction (principal); N17.9 Acute kidney failure, unspecified; E78.5 Hyperlipidemia, unspecified; I11.0 Hypertensive heart disease with heart failure; I50.42 Chronic combined systolic (congestive) and diastolic (congestive) heart failure; M54.50 Low back pain, unspecified; G89.29 Other chronic pain; J44.9 Chronic obstructive pulmonary disease, unspecified; K57.90 Diverticulosis of intestine, part unspecified, without perforation or abscess without bleeding; I25.10 Atherosclerotic heart disease of native coronary artery without angina pectoris; G47.33 Obstructive sleep apnea (adult) (pediatric); Z96.641 Presence of right artificial hip joint; Z90.89 Acquired absence of other organs; Z88.1 Allergy status to other antibiotic agents; Z88.8 Allergy status to other drugs, medicaments and biological substances; Z88.5 Allergy status to narcotic agent; Z79.82 Long term (current) use of aspirin; Z79.899 Other long term (current) drug therapy; F17.210 Nicotine dependence, cigarettes, uncomplicated
CPT/HCPCS: 52356; 74420; 80048; 80053 ×2; 81001; 82365; 85025 ×2; 87086; 93005; 96372; 96374; 96375; 96376; 99285; C1769; C2617; G0378 ×2; J3010; 36415; 88300; J1100; J1200; J1720; J1885; J2250; J2270; J2370; J2405; J3475; J7620; Q9967; S0028